=== PATIENT | male | born 2000 | race Caucasian/White ===

== ENCOUNTER 2021-01-17 10:39 | Emergency (ER) | payer BC ==
[~2021-01-17] VITALS: Ht 180.3 cm; Wt 68.5 kg
[2021-01-17 12:42] LABS: CHLAMYDIA DNA AMPLIFICATION NEGATIVE (NEGATIVE); GC DNA AMPLIFICATION NEGATIVE (NEGATIVE)
[2021-01-17] MEDS ORDERED: CIPR-249 PO (12:56)
[2021-01-17 13:02] VITALS: BP 145/77
== END 2021-01-17 13:04 | disposition home or self-care (01) ==
LOC: M ED 10:39
DX: N39.0 Urinary tract infection, site not specified (principal); F17.200 Nicotine dependence, unspecified, uncomplicated; F12.10 Cannabis abuse, uncomplicated